=== PATIENT | male | born 1985 | race Caucasian/White ===

== ENCOUNTER 2018-05-12 07:14 | Emergency (ER) | payer OTHER ==
[2018-05-12 07:24] VITALS: BP 103/60; PULSE 69; TEMP 97.6; BMI 33.9
--- NOTE | 2018-05-12 08:28 | PDOC ---
History of Present Illness - General Chief Complaint: Syncope/Near Syncope Stated Complaint: BACK AND LEG PAIN Time Seen by Provider: 05/12/18 08:01 History Source: Patient Exam Limitations: No Limitations - History of Present Illness Initial Comments: 05/12/18 08:02 [id number] with prior h/o mild intermittent low back pain with sciatica, who p/w back pain radiating down his left leg, and a reported syncopal episode this morning. The patient notes that yesterday evening, he bent down to give his son a bath and when he came back up, he noticed the onset of left flank pain radiating down to his left low back and left posterior leg to the left posterior calf. He has had difficulty walking on the left leg since this time, and states this is much worse than he has had before. He took naproxen last night and placed an Icy-Hot patch. The pain has persisted since last night. This morning [employer] WR[employer] to the ED, he reports having become dizzy while brushing his teeth, so he called his into the bathroom and shortly thereafter fainted. The notes that she helped him to the ground and he did not fall, but he was unconscious and muscles were limp for about 45 seconds, did not lose continence of bowel/bladder, and he had no postictal state. This has not happened before. The patient denies any recent f/c/n/v/d/c, chest pain, SOB, abdominal distention, n/t/w, lightheadedness, or other symptoms. Past History - Past Medical History Allergies/Adverse Reactions: Allergies Allergy/AdvReac Type Severity Reaction Status Date / Time No Known Allergies Allergy Verified 05/12/18 07:18 Home Medications: Ambulatory Orders NK [No Known Home Medication] 05/12/18 COPD: No - Suicide/Smoking/Psychosocial Hx Smoking History: Never smoked Hx Alcohol Use: No Drug/Substance Use Hx: No Review of Systems - Review of Systems Able to Perform ROS?: Yes Comments:: GEN: no fever, chills, malaise, generalized weakness, or weight change HEENT: no ear pain, sore throat, vision change, or eye pain CV: syncope, no chest pain, palpitations, lightheadedness, or edema RESP: no cough, wheezing, or SOB GI: abdominal pain, no nausea, vomiting, diarrhea, constipation, or white/black/ bloody stool : left flank pain, no dysuria, hematuria, incontinence, retention, bleeding, or discharge MSK: left back pain, left leg pain, otherwise no neck, muscle weakness/pain, or joint swelling/pain NEURO: no headache, vertigo, numbness, tingling, or focal weakness PSYCH: no substance use, no behavior change SKIN: no jaundice, no rash ROS otherwise negative except as noted in HPI *Physical Exam - Vital Signs Last Vital Signs Temp Pulse Resp BP Pulse Ox 97.6 F 69 20 103/60 98 05/12/18 07:18 05/12/18 07:18 05/12/18 07:18 05/12/18 07:18 05/12/18 07:18 - Physical Exam Comments: 05/12/18 08:45 GENERAL: nontoxic-appearing, A/Ox4, mild and holding left flank distress, answers questions appropriately HEENT: PERRLA, EOMI, moist mucous membranes NECK/BACK: no midline ttp, no spinal stepoff or deformity, no hematoma, full ROM , neck supple CARDIOVASCULAR: regular rate/rhythm, normal S1S2, no MGR, strong peripheral pulses, capillary refill <2 seconds, extremities wwp, no edema LUNGS/RESPIRATORY: no respiratory distress, CTAB GI/ABDOMEN: symmetric [id number], normoactive BS, soft, mild diffuse upper abdominal ttp, no midline pulsatile masses : left CVA ttp, no flank ecchymosis, no rash EXTREMITIES: bilateral positive straight leg raise, no muscle atrophy, no acute deformity SKIN: warm and dry, no pallor, no jaundice, no rash, no bruising, no skin breakdown, no cuts, no lesions NEUROLOGICAL: GCS 15, CN II-XII grossly intact, 5/5 strength proximally and distally, no facial droop, no tenderness to compression of the sciatic nerves Heart Score/ECG Review #1 Sinus rhythm, rate of 67, normal axis and intervals, no ST-T changes ED Treatment Course - LABORATORY CBC & Chemistry Diagram: 05/12/18 08:42 05/12/18 08:42 Medical Decision Making - Medical Decision Making 05/12/18 08:49 Pt p/w severe flank pain. Initial Vital Signs Temp Pulse Resp BP Pulse Ox 97.6 F 69 20 103/60 98 05/12/18 07:18 05/12/18 07:18 05/12/18 07:18 05/12/18 07:18 05/12/18 07:18 Exam: As noted in Physical Exam section. DDX IBNLT: back pain with sciatica (most likely with secondary vasovagal syncope ), also considered are renal colic, obstructive uropathy, UTI/pyelonephritis, much less likely are any of the following: rental artery aneurysm or dissection (oren w/ hematuria and no stone visualized on imaging), ACS, AAA/AD, pneumothorax , PE, cholecystitis, cholangitis, pancreatitis, gastritis, PUD, colitis, ruptured diverticulosis, diverticulitis wwo abscess or perforation, appendicitis , hernia, SBO, malignancy, splenic infarction, mesenteric ischemia, bowel perforation, testicular torsion, epididymitis, orchitis, urethritis, musculoskeletal, constipation, etc. W/U ordered: Labs as noted below, EKG TX ordered: IVF, Ofirmev, Toradol Laboratory Tests 05/12/18 05/12/18 05/12/18 08:42 08:42 08:50 WBC 7.8 RBC 5.40 Hgb 16.2 Hct 48.3 MCV 89.4 MCH 30.1 MCHC 33.6 RDW 13.4 Plt Count 245 MPV 8.9 Absolute Neuts (auto) 4.7 Neutrophils % 60.4 Lymphocytes % 23.9 Monocytes % 8.6 Eosinophils % 6.3 H Basophils % 0.8 Nucleated RBC % 0 Sodium 140 Potassium 4.2 Chloride 107 Carbon Dioxide 28 Anion Gap 6 L BUN 14 Creatinine 1.0 Creat Clearance w eGFR 87.16 Random Glucose 89 Calcium 9.1 Total Bilirubin 0.6 AST 20 ALT 58 Alkaline Phosphatase 70 Creatine Kinase 108 Troponin I < 0.02 Total Protein 7.6 Albumin 4.5 Lipase 214 Urine Color Dk yellow Urine Appearance Clear Urine pH 5.5 Ur Specific [place] 1.027 Urine Protein Negative Urine Glucose (UA) Negative Urine Ketones Negative Urine Blood Negative Urine Nitrite Negative Urine Bilirubin Negative Urine Urobilinogen 0.2 Ur Leukocyte Esterase Negative EKG: Reviewed; as noted in HEART Score/ECG section. Reassessment: Patient states feeling much better, wants to go home. This patient has gotten significant relief of symptoms while in the ED. On last reassessment, vitals are wnl, pain is reasonably controlled, and exam is benign. Workup is not concerning for emergency-level pathology at this time. This patient is appropriate for discharge with close outpatient follow up. They are comfortable with this plan and will follow up with their primary care provider in 1-3 days. They are counseled to stay well-hydrated. Specific return precautions are discussed and they will come back to the ER if necessary. *DC/Admit/Observation/Transfer Diagnosis at time of Disposition: Back pain Qualifiers: Back pain location: low back pain Chronicity: unspecified Back pain laterality : left Sciatica presence: with sciatica Sciatica laterality: sciatica of left side Qualified Code(s): M54.42 - Lumbago with sciatica, left side - Discharge Dispostion Disposition: HOME Condition at time of disposition: Stable Decision to Admit order: No - Referrals Referrals: ON STAFF,NOT [Non Staff, Medical] - - Patient Instructions Printed Discharge Instructions: DI for Back Pain With Sciatica Additional Instructions: You were seen in the ER for back pain. We did laboratory work on your blood and urine, as well as imaging studies, and we did not and we did not find any concerning abnormalities. Your symptoms improved with the medications we gave you in the ER. After our assessment, we do not believe you are having a medical emergency at this time, and we believe you are safe to go home. Please follow up with your primary care provider in 1-3 days. Call their clinic as soon as possible, tell them you were seen in the ER and tell them you need an appointment. If you have any new or worsening symptoms please come back to the ER at any time (24 hours a day), especially for fever, new numbness new tingling , new weakness, new urinary or bowel incontinence or retention, or other new symptoms. If you are having severe or life threatening symptoms, or symptoms that make it unsafe to drive or have someone drive you, please call 911. For pain control, use the following regimen: Take Motrin 600 mg 3 hours later, take Tylenol 650 mg 3 hours later, take Motrin 600 mg 3 hours later, take Tylenol 650 mg etc. - Post Discharge Activity Forms/Work/School Notes: Back to Work
[2018-05-12] MEDS ORDERED: ACETAMINOPHEN 1000 MG/100 ML VIAL (NON FORMULARY) IVPB ONE (08:30)
[2018-05-12] MEDS ORDERED: SODIUM CHLORIDE 1,000 ML IV STA (08:30)
[2018-05-12] MEDS ORDERED: ACETAMINOPHEN INJECTION 100 ML IVPB ONE (08:46)
[2018-05-12 08:54] LABS: BASO % 0.8 % (0-2.0); EOS % 6.3 % (0-4.5); HEMATOCRIT 48.3 % (35.4-49); HEMOGLOBIN 16.2 GM/dL (11.7-16.9); LYMPH % 23.9 % (8-40); MCH 30.1 pg (25.7-33.7); MCHC 33.6 g/dl (32.0-35.9); MEAN CELL VOLUME 89.4 fl (80-96); MEAN PLT VOLUME 8.9 fl (7.5-11.1); MONO % 8.6 % (3.8-10.2); NEUT % 60.4 % (42.8-82.8); PLATELET COUNT 245 K/MM3 (134-434); RDW 13.4 % (11.9-15.9); WHITE BLOOD COUNT 7.8 K/mm3 (4.0-10.0)
[2018-05-12 09:30] LABS: ALBUMIN 4.5 g/dl (3.4-5.0); ALK PHOS 70 U/L (45-117); ANION GAP 6 MMOL/L (8-16); BILIRUBIN,TOTAL 0.6 mg/dL (0.2-1); BLOOD UREA NITROGEN 14 mg/dL (7-18); CALCIUM 9.1 mg/dL (8.5-10.1); CHLORIDE 107 mmol/L (98-107); CO2 28 mmol/L (21-32); GLUCOSE,RANDOM 89 mg/dL (74-106); LIPASE 214 U/L (73-393); POTASSIUM 4.2 mmol/L (3.5-5.1); SGOT/AST 20 U/L (15-37); SGPT/ALT 58 U/L (13-61); SODIUM 140 mmol/L (136-145); TOT PROT 7.6 g/dl (6.4-8.2)
[2018-05-12] MEDS ORDERED: KETOROLAC TROMETHAMINE 30 MG/1 ML VIAL IVPUSH ONE (09:59)
[2018-05-12 10:00] LABS: PH,URINE 5.5 (5.0-8.0); URINE APPEARANCE CLEAR; URINE BILIRUBIN NEGATIVE (NEGATIVE); URINE GLUCOSE (UA) NEGATIVE (NEGATIVE); URINE KETONE NEGATIVE (NEGATIVE); URINE LEUK ESTERASE NEGATIVE (NEGATIVE); URINE NITRITE NEGATIVE (NEGATIVE); URINE PROTEIN NEGATIVE (NEGATIVE); URINE UROBILINOGEN 0.2 mg/dL (0.2-1.0)
--- NOTE | 2018-05-12 10:04 | PDOC ---
Attending Attestation - Resident Resident Name: [employer] - ED Attending Attestation I have performed the following: I have examined & evaluated the patient, The case was reviewed & discussed with the resident, I agree w/resident's findings & plan - HPI HPI: 05/12/18 09:59 32-year-old male with no significant past medical history presents with 1 day of left low back/leg pain and syncopal episode this morning. Patient was giving his son a bath last night, felt a tweak in his lower back and since then has had persistent sharp pain in the left low back radiating down his left leg to his calf. Awoke with a sharp exacerbation of this pain this morning, while brushing his teeth developed a sense of lightheadedness, called his , and then lost consciousness for about 45 seconds. There was no injury, he had no cardiopulmonary complaints, no seizure-like activity or postictal state. Does have a history of near syncope with triggers, never had loss of consciousness and never required cardiac evaluation. No direct back trauma, no bowel/bladder issues, no fever/chills. - Physicial Exam PE: 05/12/18 10:02 vital signs normal well appearing lying in stretcher atraumatic s1s2, rrr without murmur ctab, abd benign without cvat or palpable masses no midline spine ttp. 5/5 flex/extend b/l hips/knees/ankles/toes. negative straight leg raise. - Medical Decision Making 05/12/18 10:03 Healthy 32-year-old male presents with atraumatic left low back pain and radiation consistent with sciatic nerve involvement, neurologically intact. In the setting, had syncope with prodrome without other red flags on history or physical exam, most consistent with vasovagal etiology. EKG is normal Labs sent including troponin Pain control for sciatic nerve pain Reassess and disposition accordingly Heart Score/ECG Review #1 ECG reviewed & interpreted by me at: 08:43 General ECG Interpretation: Sinus Rhythm, Normal Rate (67), Normal Intervals ( qtc 399), No acute ischemic changes
[2018-05-12 10:10] LABS: URINE COLOR DK YELLOW
[2018-05-12] MEDS ORDERED: KETOROLAC TROMETHAMINE 30 MG/1 ML VIAL ONE (10:12)
--- NOTE | 2018-05-12 22:01 | EKG ---
Test Reason : Blood Pressure : / mmHG Vent. Rate : 067 BPM Atrial Rate : 067 BPM P-R Int : 184 ms QRS Dur : 092 ms QT Int : 378 ms P-R-T Axes : 024 064 037 degrees QTc Int : 399 ms NORMAL SINUS RHYTHM NORMAL ECG NO PREVIOUS ECGS AVAILABLE Confirmed by MD CARLEE, CHRISTIN ([id number]) on 05/12/2018 10:00:35 PM Referred By: Confirmed By:CHRISTIN BEJARANO MD
== END 2018-05-12 10:56 | disposition home or self-care (01) ==
LOC: JER 07:14
PROC: 3E033NZ Introduction of Analgesics, Hypnotics, Sedatives into Peripheral Vein, Percutaneous Approach (ICD-10-PCS; principal; 2018-05-12)
PROC: 3E0333Z Introduction of Anti-inflammatory into Peripheral Vein, Percutaneous Approach (ICD-10-PCS; 2018-05-12)
DX: M54.42 Lumbago with sciatica, left side (principal); R55 Syncope and collapse
CPT/HCPCS: 36415; 80053; 81003; 82550; 83690; 84484; 85025; 93005; 93010; 99283-25; J0131; J7030

== ENCOUNTER 2024-04-13 03:45 | Emergency (ER) | payer OTHER ==
[2024-04-13 03:56] VITALS: TEMP 98; BMI 33.9
[2024-04-13 04:27] LABS: BASO % 0.4 % (0-2.0); EOS % 2.8 % (0-4.5); HEMATOCRIT 50.4 % (35.4-49); MCH 30.5 pg (25.7-33.7); MCHC 33.7 g/dl (32.0-35.9); MEAN CELL VOLUME 90.4 fl (80-96); MEAN PLT VOLUME 8.2 fl (7.5-11.1); MONO % 8.7 % (3.8-10.2); NEUT % 72.1 % (42.8-82.8); PLATELET COUNT 278 10^3/uL (134-434); RBC 5.57 M/mm3 (4.00-5.60); RDW 12.8 % (11.9-15.9); WHITE BLOOD COUNT 15.2 K/mm3 (4.0-10.0)
[2024-04-13] MEDS: LACTATED RINGERS SOLUTION 1000 ML INFUS.BAG IV ONE (04:27)
[2024-04-13 04:33] LABS: INR 1.03 (0.83-1.09); PROTHROMBIN TIME (PATIENT) 11.2 SEC (9.7-13.0)
[2024-04-13 04:36] LABS: ACTIVATED PTT 28.7 SECONDS (25.2-36.5)
[2024-04-13 04:48] LABS: POTASSIUM 3.3 mmol/L (3.5-5.1)
[2024-04-13 04:51] LABS: CALCIUM 9.1 mg/dL (8.5-10.1)
[2024-04-13 04:52] LABS: ALBUMIN 4.4 g/dl (3.4-5.0); BLOOD UREA NITROGEN 21.7 mg/dL (7-18); MAGNESIUM 2.2 mg/dL (1.8-2.4)
[2024-04-13 04:55] LABS: CREATININE 1.1 mg/dL (0.55-1.3)
[2024-04-13 04:56] LABS: BILIRUBIN,TOTAL 0.7 mg/dL (0.2-1); TOT PROT 7.9 g/dl (6.4-8.2)
[2024-04-13 06:06] VITALS: BP 127/67; PULSE 70; RESP 12
== END 2024-04-13 06:06 | disposition short-term general hospital (02) ==
LOC: JER 03:45
DX: I46.9 Cardiac arrest, cause unspecified (principal); R55 Syncope and collapse
CPT/HCPCS: 36415; 80053; 82550; 82553; 82962; 83605; 83735; 84484; 85025; 85610; 85730; 86850; 86900; 86901; 93005; 93010; 99291